=== PATIENT | male | born 1975 | race Two or more races ===

== ENCOUNTER → 2022-09-13 | Emergency (ER) | payer OTHER ==
[~2022-09-13] VITALS: Ht 167.6 cm; Wt 81.6 kg
[~2022-09-13] MED LIST: TRAZODONE HCL150 MG PO
== END | disposition home or self-care (01) ==
LOC: ER 14:47
DX: T40.711A Poisoning by cannabis, accidental (unintentional), initial encounter (principal); T40.5X1A Poisoning by cocaine, accidental (unintentional), initial encounter; R40.0 Somnolence; Y92.89 Other specified places as the place of occurrence of the external cause